=== PATIENT | male | born 1980 | race Caucasian/White ===

== ENCOUNTER 2017-06-01 05:14 | Day surgery (SDC) | payer OTHER ==
[~2017-06-01] VITALS: Ht 180.3 cm; Wt 99.8 kg
[2017-06-01 09:11] VITALS: BP 144/94; Ht 180.3 cm; Wt 99.8 kg
[2017-06-01 09:29] LABS: BASOPHILS 0.9 % (0-2); EOSINOPHILS 5.2 % (0-7); HEMOGLOBIN 14.2 g/dL (13.5-17.5); IMMATURE GRANULOCYTES 0.2 % (0-5); LYMPHOCYTES 26.1 % (15-50); MCH 29.7 pg (26.0-34.0); MEAN PLATELET VOLUME 9.7 fL (7.4-10.4); MONOCYTES 7.5 % (2-11); NEUTROPHILS 60.1 % (40-80); PLATELET COUNT 204 10x3/uL (130-400); RBC 4.78 10x6/uL (4.20-6.10); WBC 5.7 10x3/uL (4.8-10.8)
[2017-06-01 09:40] LABS: INR 1.32 (0.85-1.17)
--- NOTE | 2017-06-09 13:27 | HP ---
PATIENT: JANIS CARDENAS MEDICAL RECORD: [id number] ACCOUNT: [id number] [facility] 78 ADMISSION DATE: 06/01/17 HISTORY AND PHYSICAL EXAMINATION CHIEF COMPLAINT: Hernia. HISTORY OF PRESENT ILLNESS: I saw the patient out at the [facility]. He has a mechanical heart valve and is on Coumadin for this. The patient has a left inguinal hernia, which has been enlarging and is symptomatic. It is reducible. I have explained the concept of hernia as well as how they can be repaired. The risks, possible complications, and alternatives to the procedure were explained to the patient. He elects to proceed. Discussion specifically included, but was not limited to, bleeding requiring an emergency reoperation, infection, and intestinal injury as well as the possible need for an orchiectomy. HOME MEDICINES: Coumadin. ALLERGIES: No known drug allergies. SOCIAL HISTORY: Nonsmoker. PAST MEDICAL AND SURGICAL HISTORY: He has had 3 heart surgeries including an aortic valve repair, also an umbilical hernia repair, also hypertension, also hypercholesterolemia. PHYSICAL EXAMINATION: GENERAL: The patient does not appear acutely ill. He does not appear chronically ill. VITAL SIGNS: Reviewed. HEAD: External ears appear normal. EYES: Extraocular movements are intact. NECK: Trachea is midline. CHEST: No intercostal retractions. PULMONARY: Nonlabored, no stridor. ABDOMEN: Nontender. GENITOURINARY: Descended testicles. Left inguinal hernia, which is reducible. IMPRESSION: Symptomatic left inguinal hernia. PLAN: Left inguinal hernia repair with mesh, open. TRANSINT:[id number] Voice Confirmation ID: [id number] DOCUMENT ID: [id number] HISTORY AND PHYSICAL [id number] JANIS CARDENAS ROBERT MD at 1327 CC: EVELINE DENNEY MD, KADE PRATHER MD and ALYSHA PLATA [id number] DICTATION DATE: 06/01/17 1313 FINISHING WIRE SAWYER: 06/01/17 1339 [facility] 06/01/17 [facility] [address] [place] [address]
--- NOTE | 2017-06-09 13:27 | OP ---
PATIENT NAME: JANIS CARDENAS MEDICAL RECORD: [id number] :78 LOCATION:[facility] ADMISSION DATE: SURGEON: EVELINE HERNANDEZ MD DATE OF OPERATION: 06/01/2017 PREOPERATIVE DIAGNOSIS: Left inguinal hernia. POSTOPERATIVE DIAGNOSES: Pantaloon left inguinal hernia (direct and indirect components). The patient also had a large secondary femoral hernia on that side. Left cord lipoma. PROCEDURES: Open left inguinal hernia repair with polypropylene mesh. Excision of left cord lipoma. SURGEON: Eveline Hernandez MD DISTRIBUTION A CLASS LINEMAN: None. BLOOD LOSS: Minimal. ANESTHESIA: General. This is a very difficult procedure. I was particularly surprised at the fact that the patient had essentially blown out the entire left inguinal floor. Not only were there, direct and indirect components, but the patient had a significant defect between the inguinal ligament and the overlying musculature. He had a hernia there as well. I suppose that should actually be called a femoral hernia, so the patient actually had 3 hernias on the same side. During the operation after the initial hernia repair, we had the patient performing Valsalva on the table while still under general anesthesia and he had a blowout of the repair. This necessitated reopening and subsequent re-repair as listed below. OPERATIVE COURSE: The patient was conveyed to the operating room electively on 06/01/2017. General anesthesia was induced by anesthesia staff. The abdomen and genitals were sterilely prepped and draped. A transverse incision was accomplished in the left groin. Sharp dissection was carried down through skin and subcutaneous tissue as well as Miriam fascia. The external oblique had blown out and there was a very large anterior defect through the transversus abdominis muscle, the internal oblique muscle as well as the rectus abdominis aponeurosis. I incised the rectus abdominis aponeurosis along the direction of its fibers secondary to this large blowout. There was virtually no transverse abdominis muscle or internal oblique muscle. I entered the preperitoneal space easily. There was a great deal of redundant fatty tissue. A direct hernia was reduced in its entirety. An indirect hernia was reduced in its entirety. Cord lipoma was excised utilizing electrocautery. The vascular pedicle to the cord lipoma was transected with electrocautery. I cut 2 ovals of a polypropylene mesh and sutured the 2 ovals together, one on top of the other with a running #1 Surgidac. I placed the mesh in the preperitoneal space. There really was not any significant amount of transverse abdominis muscle or internal oblique muscle at this level. The external oblique aponeurosis was then closed with a running #1 Vicryl. I elected for an onlay mesh as well. A keyhole onlay mesh was fashioned out of a polypropylene mesh. The 2 tails were brought around superiorly and sutured together with interrupted OPERATIVE REPORT [id number] JANIS CARDENAS 0 Surgidac. The mesh was then sutured down to the underlying external oblique aponeurosis with interrupted 3-0 Prolene sutures. I sutured the anterior portion, rather the caudad portion of the mesh to the inguinal ligament with a 0 Surgidac suture. Miriam fascia was approximated with interrupted 3-0 Vicryls. The subdermis was approximated with interrupted 3-0 Vicryls. The skin was approximated with a running intracuticular 4-0 Vicryl. I then had the anesthesia staff perform a Valsalva removal. There was a large recurrence of the hernia. I actually considering the timing, we could call this a persistent hernia. I reopened the patient's skin and subcutaneous tissue as well as Miriam's fascia. I chose to approach the hernia from an even more cephalad direction. I cleaned the external oblique aponeurosis from overlying connective tissue superiorly with scissors. The external oblique aponeurosis was then opened along the direction of its fibers. At this level, there was a well-defined internal oblique and transverse abdominis muscle layer, although they were very thin. I bluntly dissected down through these 2 muscle layers and entered the preperitoneal pocket bluntly. I completed the subcutaneous dissection bluntly. I removed the mesh that has been in place. I then cut 2 ovals of a polypropylene mesh and these were 2 larger ovals. These were sutured together one on top of the other with a #1 Surgidac. The mesh was then placed in the preperitoneal space. I closed the internal oblique and transverse abdominis muscle layers over the mesh incorporating a portion of the mesh utilizing interrupted horizontal mattress 0 Surgidac. The external oblique aponeurosis was closed with running #1 Vicryl. In order to address the femoral hernia, I tried to suture the external oblique aponeurosis to the inguinal ligament, but the inguinal ligament was poorly defined. I closed as much as I could with a running #1 Surgidac. I chose an onlay mesh as well. I fashioned the keyhole onlay mesh of a polypropylene mesh and placed this around the cord structures. I then sutured the 2 tails of the keyhole mesh together with interrupted 0 Surgidac. I then sutured the tails of the mesh to the underlying external oblique aponeurosis with 3-0 Prolene sutures. I then placed a plug up through the femoral hernia defect. The defect was quite large. I used an extra large plug. I sutured the plug to the keyhole mesh with a running #1 Surgidac. I then placed another piece of flat polypropylene mesh up through the femoral hernia into the preperitoneal space. So essentially, the patient had sandwich type of mesh with mesh in the retromuscular position as well as anteriorly. Miriam fascia was approximated with interrupted 3-0 Vicryls. The subdermis was approximated with interrupted 3-0 Vicryls. The skin was approximated with a running intracuticular 4-0 Vicryl. A sterile dressing was then applied. The patient was then extubated and conveyed post-anesthesia care unit where he was in stable condition. He is going be a very high risk for hernia recurrence. He really should do no lifting at all, no bending, no exercise type activities for at least 6 weeks in order to allow the mesh to incorporate into his abdominal wall. Rather, I will see him on round out of the group home. There is no need for him to follow up with me in the office unless he develops a complication related to this operative procedure. Should the patient develop a new hernia, this is likely going to necessitate a left orchiectomy in order to obtain a satisfactory repair. TRANSINT:[id number] Voice Confirmation ID: [id number] DOCUMENT ID: [id number] OPERATIVE REPORT [id number] JANIS CARDENAS ROBERT MD at 1327 CC: EVELINE DENNEY MD, KADE PRATHER MD and ALYSHA PLATA [id number] DICTATION DATE: 06/01/17 1351 WASH BARREL LEADER: 06/01/17 1510 [facility] 06/01/17 [facility] [address] [facility] [address]
== END 2017-06-01 15:55 | disposition home or self-care (01) ==
LOC: D.OPS 05:14 → D.SDCHOLD 05:15 → D.OPS 08:00
PROVIDERS: Anesthesiology
DX: K40.90 Unilateral inguinal hernia, without obstruction or gangrene, not specified as recurrent (principal); Z01.812 Encounter for preprocedural laboratory examination